=== PATIENT | male | born 1945 | race Caucasian/White ===

== ENCOUNTER 2018-05-17 09:35 | Emergency (ER) | payer OTHER ==
[~2018-05-17] VITALS: Ht 185.4 cm; Wt 95.3 kg
[~2018-05-17 09:35] MED LIST: GLUCOPHAGE XR750 MG; SUDAFED30 MG
[2018-05-17] MEDS ORDERED: ANUSOL-HC25 MG RECTAL (10:42)
[2018-05-17 10:53] VITALS: BP 151/67
== END 2018-05-17 10:54 | disposition home or self-care (01) ==
LOC: ER 09:35
DX: K64.8 Other hemorrhoids (principal); E11.9 Type 2 diabetes mellitus without complications